=== PATIENT | female | born 1980 | race African-American/Black ===

== ENCOUNTER 2022-03-05 03:54 | Emergency (ER) | payer OTHER ==
[~2022-03-05] VITALS: Ht 170.2 cm; Wt 68.0 kg
[2022-03-05] MEDS ORDERED: ACETAMINOPHEN 325MG TABLET PO STA (05:24)
[2022-03-05] MEDS ORDERED: LORAZEPAM 1MG TABLET PO ONE (05:30)
[2022-03-05 05:42] LABS: BASOPHILS % 0.7 % (0.0-2.0); EOSINOPHILS % 0.9 % (0.0-5.0); HEMATOCRIT. 25.8 % (36.0-48.0); HEMOGLOBIN. 7.9 g/dL (12.0-16.0); LYMPHOCYTES % 25.4 % (20.0-50.0); MEAN CORPUSCULAR HEMOGLOBIN 20.9 pg (28.0-32.0); MEAN CORPUSCULAR VOLUME 68.3 fL (81.0-99.0); MONOCYTES % 8.2 % (2.0-8.0); NEUTROPHILS % 64.8 % (40.0-76.0); PLATELET 242 x1000/uL (130-400); RED BLOOD CELL COUNT 3.78 mill/uL (4.2-5.4); RED CELL DISTRIBUTION WIDTH 19.2 % (11.6-14.6)
[2022-03-05 05:53] LABS: CHLORIDE 108 mEq/L (98-107)
[2022-03-05 06:02] LABS: ETHANOL BLOOD 23 mg/dL
[2022-03-05 06:16] LABS: CLARITY URINE CLEAR (CLEAR); COLOR URINE YELLOW (YELLOW); KETONES URINE TRACE (NEGATIVE); LEUKOCYTE ESTERASE URINE 1+ (NEGATIVE); NITRITE URINE NEGATIVE (NEGATIVE); OCCULT BLOOD URINE NEGATIVE (NEGATIVE); PH URINE 5.5 (4.5-8.0); PROTEIN URINE TRACE (NEGATIVE); SPECIFIC GRAVITY URINE 1.023 (1.005-1.030); UROBILINOGEN URINE 0.2 E.U./dL (0.2-1.0)
[2022-03-05 06:17] LABS: HCG SCREEN NEGATIVE
[2022-03-05 06:35] LABS: *AMPHETAMINES SCREEN URINE NEGATIVE (NEGATIVE); *BARBITURATES SCREEN URINE NEGATIVE (NEGATIVE); *BENZODIAZEPINES SCREEN URINE NEGATIVE (NEGATIVE); *COCAINE SCREEN URINE NEGATIVE (NEGATIVE); CANNABINOID URINE SCREEN NEGATIVE (NEGATIVE); METHADONE URINE SCREEN NEGATIVE (NEGATIVE); OPIATES URINE SCREEN NEGATIVE (NEGATIVE); PHENCYCLIDINE URINE SCREEN NEGATIVE (NEGATIVE)
[2022-03-05 07:28] LABS: PLATELET ESTIMATE NORMAL
[2022-03-05] MEDS ORDERED: POTASSIUM CHLORIDE 20MEQ TABLET SR PO ONE (13:00)
[2022-03-05] MEDS ORDERED: BUSPIRONE HCL 5MG TABLET PO PRN (13:45)
[2022-03-05] MEDS ORDERED: POTASSIUM CHLORIDE 20MEQ TABLET SR PO SCH (15:00)
[2022-03-05] MEDS: ARIPIPRAZOLE 5MG TABLET PO SCH ×2 (15:10→21:59)
[2022-03-05] MEDS: BUPROPION HCL 150MG TABLET XL 24HR PO SCH (15:10)
[2022-03-05] MEDS: NITROFURANTOIN 100MG M/M CAPSULE PO SCH (21:59)
[2022-03-06] MEDS: BUPROPION HCL 150MG TABLET XL 24HR PO SCH (09:00)
[2022-03-06] MEDS: ARIPIPRAZOLE 5MG TABLET PO SCH (09:00)
[2022-03-06] MEDS: NITROFURANTOIN 100MG M/M CAPSULE PO SCH (09:00)
[2022-03-06] MEDS ORDERED: NITR-87 MT (19:11)
[2022-03-06 19:30] VITALS: BP 105/57
== END 2022-03-06 19:40 | disposition home or self-care (01) ==
LOC: ER 03:54
DX: R45.851 Suicidal ideations (principal); Z20.822 Contact with and (suspected) exposure to COVID-19; Z86.59 Personal history of other mental and behavioral disorders
CPT/HCPCS: 36415; 80053; 80305; 80307; 80320; 80329; 81003; 84703; 85025; 99285; C9803; U0003; U0005; G0480

== ENCOUNTER 2025-03-13 15:26 | Emergency (ER) | payer OTHER ==
[~2025-03-13] VITALS: Ht 175.3 cm; Wt 91.0 kg
[~2025-03-13 15:26] MED LIST: NITR-87 MT
[2025-03-13 15:29] VITALS: BP 157/78; PULSE 115; RESP 20; TEMP 36.6; O2SAT 100
[2025-03-13 16:37] VITALS: TEMP 97.9
[2025-03-13] MEDS: ACETAMINOPHEN 325MG TABLET PO ONE (16:37)
[2025-03-13] MEDS ORDERED: TOPUD MT (17:02)
== END 2025-03-13 17:30 ==
LOC: ER 15:26
DX: S09.90XA Unspecified injury of head, initial encounter (principal); F20.9 Schizophrenia, unspecified; F31.9 Bipolar disorder, unspecified; X58.XXXA Exposure to other specified factors, initial encounter; Y93.89 Activity, other specified; Y92.89 Other specified places as the place of occurrence of the external cause; Y99.8 Other external cause status
CPT/HCPCS: 99284